=== PATIENT | male | born 1995 | race African-American/Black ===

== ENCOUNTER 2022-07-23 15:57 | Emergency (ER) | payer SELFPAY ==
[~2022-07-23] VITALS: Ht 165.1 cm; Wt 80.0 kg
[~2022-07-23 15:57] MED LIST: ENALAPRIL10 MG PO; GARAMYCIN0.31 OD; LOSARTAN POT25 MG PO; NO HOME MEDS; PERCOCET 5/325M1 TAB PO
[2022-07-23] MEDS ORDERED: VOLTAREN1%GEL TOP (18:57)
[2022-07-23 19:05] VITALS: BP 121/85
== END 2022-07-23 19:05 | disposition home or self-care (01) | DRG 556 ==
LOC: ED 15:57
DX: M25.561 Pain in right knee (principal)

== ENCOUNTER 2024-02-08 12:58 | Emergency (ER) | payer SELFPAY ==
[~2024-02-08] VITALS: Ht 165.1 cm; Wt 77.1 kg
[~2024-02-08 12:58] MED LIST changes: +VOLTAREN1%GEL TOP
[2024-02-08] MEDS ORDERED: Diph, Acellular Pertussis, Tet 0.5 ML/VIAL (Tdap) SDV IM ONE (13:05)
[2024-02-08] MEDS ORDERED: LIDOcaine HCl 1% (Local Anesth.) 20 ML VIAL STI STA (13:05)
[2024-02-08] MEDS ORDERED: POVIDONE IODINE 0.5 OZ/BTL TOP ONE (13:05)
[2024-02-08] MEDS ORDERED: STERILE WATER 10 ML/VIAL SDV IM ONE (13:05)
[2024-02-08] MEDS ORDERED: ceFAZolin 1 GM/VIAL SDV IM ONE (13:05)
[2024-02-08] MEDS ORDERED: ONDANSETRON HCl 4 MG/2 ML SDV IV ONE (13:10)
[2024-02-08] MEDS ORDERED: MORPHINE SULFATE 4 MG/ML VIAL IV ONE (13:10)
[2024-02-08 16:40] VITALS: BP 149/103
[2024-02-08 16:43] VITALS: BP 149/103
== END 2024-02-08 16:46 | disposition home or self-care (01) | DRG 159 ==
LOC: ED 12:58
PROC: 0CQ1XZZ Repair Lower Lip, External Approach (ICD-10-PCS; principal; 2024-02-08)
PROC: 0CQ0XZZ Repair Upper Lip, External Approach (ICD-10-PCS; 2024-02-08)
DX: S01.511A Laceration without foreign body of lip, initial encounter (principal); W40.9XXA Explosion of unspecified explosive materials, initial encounter; Y93.89 Activity, other specified; Y92.009 Unspecified place in unspecified non-institutional (private) residence as the place of occurrence of the external cause
CPT/HCPCS: J0690

== ENCOUNTER 2024-02-15 03:38 | Emergency (ER) | payer SELFPAY ==
[~2024-02-15] VITALS: Ht 165.1 cm; Wt 77.0 kg
[2024-02-15 05:58] VITALS: BP 152/103
== END 2024-02-15 04:45 | disposition home or self-care (01) | DRG 950 ==
LOC: ED 03:38
DX: S01.511D Laceration without foreign body of lip, subsequent encounter (principal); X58.XXXD Exposure to other specified factors, subsequent encounter